=== PATIENT | male | born 1935 | race Caucasian/White ===

== ENCOUNTER → 2017-01-26 | Day surgery (SDC) | payer MEDICARE, OTHER ==
[~2017-01-26] MED LIST: ACETAMIN W/CODE1 TAB PO; ALDACTONE 25MG25 MG PO; ALLOPURINOL300 MG PO; ASPIR-LOW81 MG PO; ASPIRIN 81MG TA81 MG PO; ATORVASTATIN CA40 MG PO; CARVEDILOL 25MG25 MG PO; CENTRUM SILVER1 EAC3 PO; CENTRUM SILVER1 TA2 PO; CHEWABLE ASPIRI81 MG PO; CLOPIDOGREL75 M2 PO; COLACE50 MG PO; DOXAZOSIN MESYLA2 MG PO; FUROSEMIDE 40MG40 M1 PO; LISINOPRIL40 MG PO; LOVASTATIN40 MG PO; METOLAZONE 2.52.5 MG PO; METOPROLOL SUC100 M1 PO; NITROGLYCER0.1 MG/HR TD; OMEGA-31000 M1 PO; OMEPRAZOLE20 MG PO; OSTEO BI-FLEX1 EAC1 PO; POTASSIUM CHLO10 ME1 PO; POTASSIUM CHLO10 ME3 PO; PREDNISONE 5MG.5 MG PO; RANEXA500 M1 PO; SPIRONOLACTONE25 MG NG; SPIRONOLACTONE25 MG PO; SULINDAC150 MG PO; TAMSULOSIN HCL0.4 MG PO; VALTREX1 GM PO; VITAMIN D31000 IU PO
[2017-01-26 07:52] LABS: LYMPH # 1.3 K/mm3 (0.7-4.5); LYMPH % 16.5 % (10-50)
[2017-01-26 07:57] LABS: BUN 33 mg/dL (7-18); GFR (ESTIMATED) 32 ML/MIN (>60)
--- NOTE | 2017-01-26 11:13 | RADIOLOGY REPORT PS360 ---
CARDIAC CATHETERIZATION DATE OF CATHETERIZATION:01/26/2017 10:54 AM PROCEDURES: 1. Selective coronary angiogram 2. Stent deployment to the proximal mid LAD INDICATION FOR TEST: 1. Coronary artery disease 2. Angina pectoris class IV Informed consent was obtained prior to the procedure. COMPLICATIONS: None ESTIMATED BLOOD LOSS: Less than 10 ml. Clinical history: 81-year-old gentleman with chronic renal failure with a baseline creatinine of 2.1. Last week patient underwent angiography for class IV angina pectoris. At that time a very severe focal lesion was identified adjacent to the first septal clinical provider trainer and first diagonal artery. My initial plan was to send patient for bypass surgery however after further discussion with the family it was decided to proceed with stent procedure. Patient was brought back to the [facility] today for planned stenting of the proximal to mid LAD with provisional angioplasty stenting of the large first diagonal artery. TECHNIQUE: One percent lidocaine was used to anesthetize the right groin. The right femoral artery was accessed via the Seldinger technique. A 6 Syriac sheath was placed in the right femoral artery and 9000 units of heparin was administered intra-arterially via the sheath. An EBU 3. 75 guide catheter was used intubate the left main artery and a wire was used to traverse the stenosis in the LAD. I reviewed the angiogram from last week therefore did limited angiography today in order to spare contrast. A BMW wire was placed in the LAD and a 3 mm x 30 mm resolute stent was placed in the proximal to mid LAD and deployed at 18 cindy reducing the stenosis to less than 10%. TANNER-3 flow was present down both the diagonal artery and the large septal clinical provider trainer therefore I was pleased with this procedure and decided to leave both of these side branches along. The closing ACT was 370 seconds. The groin is reprepped gloves were changed sheath was removed good hemostasis was achieved using Perclose device patient was transferred to the postop holding area in stable condition. Patient was preloaded with 180 mg of Brilinta prior to the procedure IMPRESSION: 1. Critical stenosis in the LAD immediately adjacent to the takeoff of the large first septal clinical provider trainer and large first diagonal artery 2. Successful stenting of the proximal to mid LAD critical disease reduced to less than 10% with 1 drug-eluting stent PLAN: 1. Brilinta and aspirin 2. Risk factor modification
--- NOTE | 2017-01-26 11:13 | RADIOLOGY REPORT PS360 ---
CARDIAC CATHETERIZATION DATE OF CATHETERIZATION:01/26/2017 10:54 AM PROCEDURES: 1. Selective coronary angiogram 2. Stent deployment to the proximal mid LAD INDICATION FOR TEST: 1. Coronary artery disease 2. Angina pectoris class IV Informed consent was obtained prior to the procedure. COMPLICATIONS: None ESTIMATED BLOOD LOSS: Less than 10 ml. Clinical history: 81-year-old gentleman with chronic renal failure with a baseline creatinine of 2.1. Last week patient underwent angiography for class IV angina pectoris. At that time a very severe focal lesion was identified adjacent to the first septal software project lead and first diagonal artery. My initial plan was to send patient for bypass surgery however after further discussion with the family it was decided to proceed with stent procedure. Patient was brought back to the [facility] today for planned stenting of the proximal to mid LAD with provisional angioplasty stenting of the large first diagonal artery. TECHNIQUE: One percent lidocaine was used to anesthetize the right groin. The right femoral artery was accessed via the Seldinger technique. A 6 Hungarian sheath was placed in the right femoral artery and 9000 units of heparin was administered intra-arterially via the sheath. An EBU 3. 75 guide catheter was used intubate the left main artery and a wire was used to traverse the stenosis in the LAD. I reviewed the angiogram from last week therefore did limited angiography today in order to spare contrast. A BMW wire was placed in the LAD and a 3 mm x 30 mm resolute stent was placed in the proximal to mid LAD and deployed at 18 cindy reducing the stenosis to less than 10%. TANNER-3 flow was present down both the diagonal artery and the large septal software project lead therefore I was pleased with this procedure and decided to leave both of these side branches along. The closing ACT was 370 seconds. The groin is reprepped gloves were changed sheath was removed good hemostasis was achieved using Perclose device patient was transferred to the postop holding area in stable condition. Patient was preloaded with 180 mg of Brilinta prior to the procedure IMPRESSION: 1. Critical stenosis in the LAD immediately adjacent to the takeoff of the large first septal software project lead and large first diagonal artery 2. Successful stenting of the proximal to mid LAD critical disease reduced to less than 10% with 1 drug-eluting stent PLAN: 1. Brilinta and aspirin 2. Risk factor modification
[2017-01-26 15:42] VITALS: BP 104/64
== END ==
LOC: CATHLAB 07:14
PROVIDERS: Internal Medicine
PROC: 027034Z Dilation of Coronary Artery, One Artery with Drug-eluting Intraluminal Device, Percutaneous Approach (ICD-10-PCS; principal; 2017-01-26 08:30)
DX: I25.118 Atherosclerotic heart disease of native coronary artery with other forms of angina pectoris (principal); I70.208 Unspecified atherosclerosis of native arteries of extremities, other extremity; I70.92 Chronic total occlusion of artery of the extremities; N18.9 Chronic kidney disease, unspecified
CPT/HCPCS: C1725; C1760; C1769; C1876; C1894; J1644; Q9967